=== PATIENT | male | born 1990 | race Caucasian/White ===

== ENCOUNTER 2020-05-17 08:56 | Emergency (ER) | payer OTHER ==
[~2020-05-17] VITALS: Ht 172.7 cm; Wt 95.3 kg
== END 2020-05-17 12:44 | disposition home or self-care (01) ==
LOC: ER 08:56
DX: R00.2 Palpitations (principal); R11.2 Nausea with vomiting, unspecified; F41.8 Other specified anxiety disorders; Z03.818 Encounter for observation for suspected exposure to other biological agents ruled out